=== PATIENT | male | born 1985 | race Caucasian/White ===

== ENCOUNTER → 2020-05-04 10:17 | Outpatient (CLI) | payer OTHER, SELFPAY ==
[2020-05-05 10:43] LABS: COVID19 Sendout Not Detected (Not Detect)
== END ==
PROVIDERS: PCP Physician Assistant Medical; Visit Provider Physician Assistant
DX: Z11.59 Encounter for screening for other viral diseases (principal)
CPT/HCPCS: 87635

== ENCOUNTER 2020-05-07 09:51 | Day surgery (SDC) | payer OTHER, SELFPAY ==
[2020-05-04 08:06] VITALS: BMI 24.3
[2020-05-07] VITALS (7 sets, daily range): BP systolic 112–145; BP diastolic 74–89; PULSE 56–67; RESP 8–16; TEMP 36.1–36.4; O2SAT 96–99; BMI 23.2
[2020-05-07] MEDS: LACTATED RINGERS 1,000 ML 42 ML IV (10:11)
--- NOTE | 2020-05-07 11:00 | PM.PREOP ---
Pre-operative Note COVID-19 COVID-19 status: Negative Result date/Date tested (Pos, Neg/Pending): 05/04/20 Interval Note History & Physical reviewed/Exam performed by Physician: Yes Changes to H&P: No
[2020-05-07] MEDS: CLINDAMYCIN 900 MG/50 ML PIGGYBACK 50 MG IV (11:30)
--- NOTE | 2020-05-07 11:53 | SUR.OPER ---
Supine on padded OR bed, head on pillow, arms secured on padded arm boards at <90 degrees abduction, legs uncrossed, safety belt at thigh, tape over blanket over lower legs.
[2020-05-07] MEDS: BUPIVACAINE 0.5% (PF) VIAL 30 ML INJ (12:00)
--- NOTE | 2020-05-07 12:57 | PM.OP.1 ---
Operative Date/Time/Diagnoses Date of procedure: 05/07/20 Time of procedure: 12:57 Pre-op diagnosis: Right inguinal hernia reducible Post-op diagnosis: same (Large indirect hernia with no contents) Procedure & Clinicians Procedure: Repair with plug and patch technique Same procedure as scheduled: Yes Indications: Symptomatic right inguinal hernia Surgeon: Vasyl Sanchez Click Yes if Unassisted: Yes Anesthesia Type: General Operative Notes Findings: Large indirect sac. Fair amount of fat in the wall of the hernia sac. Closure Type: primary Specimen(s): none sent Prosthetic devices, grafts, tissues, transplants, or devices: Mesh Estimated Blood Loss (mL): 10 Blood products transfused: none Procedure in detail: The patient was placed supine on the operating room table and underwent general LMA anesthesia. He was prepped and draped in the usual fashion. Local anesthetic was infiltrated. A transverse incision was made overlying the right internal ring and carried down to the level of the external oblique. The external oblique was opened parallel with its fibers through the external ring. The cord structures were elevated. The cremaster was opened proximally and search made for an indirect sac. An indirect sac was identified and from surrounding structures. It was opened and found to have no contents. A pursestring of 2 0 silk was placed at the level the deep epigastric vessels. A tie was placed beyond this. That sac was transected and the stump allowed to retract. A medium plug was placed in the defect created by the hernia. This tacked into place with interrupted 0 Ethibond suture. The cremaster was closed loosely with interrupted 3 0 Vicryl.. The floor was examined and was found to be intact except for generalized weakness around the internal ring. This is due to the large size of the hernia.. A patch was placed across the floor and tacked at the pubic tubercle, the posterior lamella of the anterior rectus sheath, the ilioinguinal ligament, and superior lateral to the cord. The opening was modified as necessary to prevent tight constriction of the cord. Sutures of 0 Ethibond were used to secure the mesh. The external oblique was closed with a running 3 0 Vicryl. The subcu was closed with interrupted 3 0 Vicryl. The skin was closed with a running 4 0 Vicryl subcuticular stitch and Steri-Strips. Dressing was applied, the patient was awakened, and the patient was taken to the recovery area in good condition. Complications: none Post-operative Condition: stable Disposition: PACU
[2020-05-07] MEDS: OXYCODONE/ACETAMINOPHEN 5/325 TABLET 1 TAB PO (13:09)
[2020-05-07] MEDS: ONDANSETRON 4 MG/2 ML INJ IV (13:14)
--- NOTE | 2020-05-07 13:18 | SUR.PHASEI ---
Slept until aroused by surgeon. Denies nausea. Pain /. HOB elevated, pudding and water given prior to Rx. Pt states that Percocet and vicoden make him nauseated, Zofran given prophylactically. Discussed this with Dr. Sanchez, he will order home med ODT for nausea. Pt doing well. Preparing to transfer.
--- NOTE | 2020-05-07 13:32 | SUR.PHASEI ---
1327 Stable, transferred to [facility], girlfriend to bedside. Awake, oriented, pleasant. Dressing remains CDI. Pain 10/17
--- NOTE | 2020-05-07 13:54 | SUR.PHASEII ---
Patient's work release form sent to [facility].
== END 2020-05-07 13:52 | disposition home or self-care (01) ==
PROVIDERS: PCP Physician Assistant Medical; Referring Provider Physician Assistant Medical; Visit Provider Specialist
PROC: (CPT 49505; principal; 2020-05-07 11:15)
DX: K40.90 Unilateral inguinal hernia, without obstruction or gangrene, not specified as recurrent (principal); F17.210 Nicotine dependence, cigarettes, uncomplicated
CPT/HCPCS: 49505; C1781; J1100; J2250; J2405; J2704; J3010